=== PATIENT | male | born 1980 | race Caucasian/White ===

== ENCOUNTER 2017-07-06 12:59 | Emergency (ER) | payer SELFPAY ==
[~2017-07-06] VITALS: Ht 167.6 cm; Wt 70.0 kg
[2017-07-06 13:01] VITALS: BP 188/109; PULSE 99; RESP 18; TEMP 98.2; O2SAT 97
--- NOTE | 2017-07-06 13:59 | PD ---
HPI Chief Complaint: Abdominal Pain Time Seen by Provider: 13:43 Travel History International Travel<30 days: No Contact w/Intl Traveler<30days: No Traveled to known affect area: No History of Present Illness HPI 36-year-old male complains of right flank pain. Patient states that he has intermittent right flank pain for the past 3 months. Patient states that the pain aching pain intermittent pain occasionally worse with movement or deep inspiration. Patient denies any nausea vomiting diarrhea. Patient denies any dysuria or frequency. Patient denies any fever chills. Patient denies any injury to the area. Patient states that he drinks alcohol daily. Patient states that he has a shake if he stops drinking. Patient denies any history of DT. Patient denies any flank pain or abdominal pain today. PFSH Past Medical History Depression: Yes Diminished Hearing: No Hypertension: Yes Medical other: Yes (ETOH ABUSE) Past Surgical History Other Surgery: Yes (LEFT KNEE, LEFT SHOULDER RECONSTRUCTION, RIGHT WRIST CYST REMOVED) Social History Alcohol Use: Yes (VOKDA 1 PT PER DAY) Tobacco Use: Yes (1 PPD) Substance Use: Yes (MARIJUANA) Allergies-Medications (Allergen,Severity, Reaction): Coded Allergies: No Known Allergies (Unverified , 07/06/17) Reported Meds & Prescriptions Reported Meds & Active Scripts Active No Active Prescriptions or Reported Medications Review of Systems General / Constitutional: No: Fever Eyes: No: Visual changes HENT: No: Headaches Cardiovascular: No: Chest Pain or Discomfort Respiratory: No: Shortness of Breath Gastrointestinal: Positive: Abdominal Pain Genitourinary: No: Dysuria Musculoskeletal: No: Pain Skin: No Rash Neurologic: No: Weakness Psychiatric: No: Depression Endocrine: No: Polydipsia Hematologic/Lymphatic: No: Easy Bruising Physical Exam Narrative GENERAL: Well-nourished, well-developed patient. SKIN: Focused skin assessment warm/dry. HEAD: Normocephalic. EYES: No scleral icterus. No injection or drainage. NECK: Supple, trachea midline. No JVD or lymphadenopathy. CARDIOVASCULAR: Regular rate and rhythm without murmurs, gallops, or rubs. RESPIRATORY: Breath sounds equal bilaterally. No accessory muscle use. GASTROINTESTINAL: Abdomen soft, non-tender, nondistended. MUSCULOSKELETAL: No cyanosis, or edema. BACK: Nontender without obvious deformity. No CVA tenderness. Neurologic exam normal. Data Data Last Documented VS Vital Signs Date Time Temp Pulse Resp B/P (MAP) Pulse Ox O2 Delivery O2 Flow Rate FiO2 07/06/17 15:16 89 22 161/98 (119) 99 Room Air 07/06/17 13:01 98.2 Orders Orders Complete Blood Count With Diff (07/06/17 13:47) Comprehensive Metabolic Panel (07/06/17 13:47) Lipase (07/06/17 13:47) Prothrombin Time / Inr (Pt) (07/06/17 13:47) Act Partial Throm Time (Ptt) (07/06/17 13:47) Urinalysis - C+S If Indicated (07/06/17 13:47) Iv Access Insert/Monitor (07/06/17 13:47) Ecg Monitoring (07/06/17 13:47) Oximetry (07/06/17 13:47) Sodium Chloride 0.9% Flush (Ns Flush) (07/06/17 14:00) Potassium Chloride (Kcl) (07/06/17 15:30) Labs Laboratory Tests Test 07/06/17 14:05 07/06/17 15:10 White Blood Count 8.0 TH/MM3 Red Blood Count 4.32 MIL/MM3 Hemoglobin 16.0 GM/DL Hematocrit 45.5 % Mean Corpuscular Volume 105.4 FL Mean Corpuscular Hemoglobin 37.0 PG Mean Corpuscular Hemoglobin Concent 35.1 % Red Cell Distribution Width 13.7 % Platelet Count 84 TH/MM3 Mean Platelet Volume 9.7 FL Neutrophils (%) (Auto) 74.9 % Lymphocytes (%) (Auto) 12.7 % Monocytes (%) (Auto) 10.9 % Eosinophils (%) (Auto) 0.9 % Basophils (%) (Auto) 0.6 % Neutrophils # (Auto) 6.0 TH/MM3 Lymphocytes # (Auto) 1.0 TH/MM3 Monocytes # (Auto) 0.9 TH/MM3 Eosinophils # (Auto) 0.1 TH/MM3 Basophils # (Auto) 0.1 TH/MM3 CBC Comment AUTO DIFF Differential Total Cells Counted 100 Neutrophils % (Manual) 73 % Band Neutrophils % 8 % Lymphocytes % 10 % Monocytes % 9 % Neutrophils # (Manual) 6.5 TH/MM3 Differential Comment FINAL DIFF MANUAL Platelet Estimate LOW Platelet Morphology Comment NORMAL Red Cell Morphology Comment NORMAL Prothrombin Time 10.7 SEC Prothromb Time International Ratio 1.0 RATIO Activated Partial Thromboplast Time 25.8 SEC Blood Urea Nitrogen 9 MG/DL Creatinine 0.80 MG/DL Random Glucose 93 MG/DL Total Protein 8.3 GM/DL Albumin 4.0 GM/DL Calcium Level 9.2 MG/DL Alkaline Phosphatase 82 U/L Aspartate Amino Transf (AST/SGOT) 317 U/L Alanine Aminotransferase (ALT/SGPT) 215 U/L Total Bilirubin 2.0 MG/DL Sodium Level 132 MEQ/L Potassium Level 3.0 MEQ/L Chloride Level 95 MEQ/L Carbon Dioxide Level 26.3 MEQ/L Anion Gap 11 MEQ/L Estimat Glomerular Filtration Rate 108 ML/MIN Lipase 311 U/L Urine Color YELLOW Urine Turbidity CLEAR Urine pH 6.0 Urine Specific Call 1.019 Urine Protein 30 mg/dL Urine Glucose (UA) NEG mg/dL Urine Ketones 40 mg/dL Urine Occult Blood NEG Urine Nitrite NEG Urine Bilirubin SMALL Urine Urobilinogen 8.0 MG/DL Urine Leukocyte Esterase NEG Urine WBC 2 /hpf Urine Hyaline Casts 7 /lpf Urine Granular Casts 6 /lpf Microscopic Urinalysis Comment CULT NOT INDICATED MDM Medical Decision Making Medical Screen Exam Complete: Yes Emergency Medical Condition: Yes Interpretation(s) 1522 PM. Sodium 132. Potassium 3.0. Total bili 2.0. AST 317. ALT 215. Differential Diagnosis Differential diagnosis including musculoskeletal, alcoholic hepatitis, cholecystitis, colitis, UTI, pyelonephritis, nephrolithiasis. Narrative Course 36-year-old male with intermittent right flank pain. History of EtOH abuse. Diagnosis Primary Impression: Transaminitis Additional Impression: Elevated blood pressure reading Patient Instructions: General Instructions Additional Instructions: Advised [facility] for detox. Lisinopril as directed. Follow-up with personal physician for blood pressure check. Med/Other Pt SpecificInfo: Prescription(s) given Scripts Lisinopril (Lisinopril) 5 Mg Tab 5 MG PO DAILY for Blood Pressure Management, #30 TAB 0 Refills Prov: Dave العراقي MD 07/06/17 Disposition: 01 DISCHARGE HOME Condition: Stable Dave العراقي MD Jul 06, 2017 13:59
[2017-07-06] MEDS ORDERED: SODIUM CHLORIDE 0.9% FLUSH 10 ML FLUSH IV FLUSH PRN (14:00)
[2017-07-06 14:09] VITALS: O2SAT 97
[2017-07-06 14:17] LABS: BASOPHIL # 0.1 TH/MM3 (0-0.2); BASOPHIL % 0.6 % (0.0-2.0); EOSINOPHIL # 0.1 TH/MM3 (0-0.4); EOSINOPHIL % 0.9 % (0.0-4.0); HEMATOCRIT 45.5 % (39.0-51.0); LYMPH % 12.7 % (9.0-44.0); MEAN CELL VOLUME 105.4 FL (80.0-100.0); MEAN CORPUSCULAR HGB CONC 35.1 % (32.0-36.0); MONO % 10.9 % (0.0-8.0); NEUT % 74.9 % (16.0-70.0); PLATELET COUNT 84 TH/MM3 (150-450); RED BLOOD COUNT 4.32 MIL/MM3 (4.50-5.90); RED CELL DISTRIBUTION WIDTH 13.7 % (11.6-17.2)
[2017-07-06 14:26] LABS: APTT (PATIENT) 25.8 SEC (24.3-30.1); PROTHROMBIN TIME - PATIENT 10.7 SEC (9.8-11.6)
[2017-07-06 14:28] LABS: ALT (GPT) 215 U/L (12-78); ANION GAP 11 MEQ/L (5-15); AST (GOT) 317 U/L (15-37); BICARBONATE 26.3 MEQ/L (21.0-32.0); BLOOD UREA NITROGEN 9 MG/DL (7-18); CHLORIDE 95 MEQ/L (98-107); GLOMERULAR FILTRATION RATE 108 ML/MIN (>89); SODIUM (NA) 132 MEQ/L (136-145)
[2017-07-06 14:30] LABS: ALKALINE PHOSPHATASE 82 U/L (45-117)
[2017-07-06 15:16] VITALS: BP 161/98; PULSE 89; RESP 22; O2SAT 99
[2017-07-06] MEDS ORDERED: POTASSIUM CHLORIDE 20 MEQ CONTROLLED RELEASE TAB PO ONE (15:30)
[2017-07-06 15:46] LABS: HEMO FLAGS AUTO DIFF
[2017-07-06 16:00] LABS: BANDS 8 % (0-6); NEUTROPHIL # MANUAL DIFF 6.5 TH/MM3 (1.8-7.7); PLATELET ESTIMATE SMEAR LOW (NORMAL); PLATELET MORPHOLOGY NORMAL (NORMAL); POLYS (SEG NEUTROPHILS) 73 % (16-70); WBC DIFF SAMPLE 100
[2017-07-06 16:01] LABS: BLOOD, URINE NEG (NEG); COMMENT (UR) CULT NOT INDICATED; CULTURE IF INDICATED CULT NOT INDICATED; GLUCOSE,URINE NEG (NEG); GRANULAR CAST, URINE 6 /lpf; HYALINE CAST, URINE 7 /lpf (RARE); KETONE, URINE 40 mg/dL (NEG); NITRITE,URINE NEG (NEG); URINE COLOR YELLOW (YELLW/STRAW)
[2017-07-06 16:02] LABS: SCAN/DIFF FINAL DIFF MANUAL
[2017-07-06] MEDS ORDERED: LISI-519 PO (17:20)
== END 2017-07-06 17:33 | disposition home or self-care (01) ==
LOC: NEPD 12:59
DX: R74.0 Nonspecific elevation of levels of transaminase and lactic acid dehydrogenase [LDH] (principal); I10 Essential (primary) hypertension; F17.200 Nicotine dependence, unspecified, uncomplicated
CPT/HCPCS: 80053; 81001; 83690; 85007; 85027; 85610; 85730; 99283

== ENCOUNTER 2017-10-04 12:19 | Emergency (ER) | payer SELFPAY ==
[~2017-10-04] VITALS: Ht 167.6 cm; Wt 68.0 kg
[~2017-10-04 12:19] MED LIST: LISI-519 PO
[2017-10-04 12:20] VITALS: BP 168/86; PULSE 90; RESP 18; TEMP 98.1; O2SAT 99
[2017-10-04] MEDS ORDERED: KETOROLAC TROMETHAMINE 60 MG/2 ML (IM) VIAL IM ONE (12:45)
[2017-10-04] MEDS ORDERED: ORPHENADRINE INJ 60 MG/2 ML AMP IM ONE (12:45)
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
[2017-10-04] MEDS ORDERED: TYLETAB34 PO (16:21)
[2017-10-04] MEDS ORDERED: CYCL5TAB PO (16:21)
[2017-10-04] MEDS ORDERED: IBUP-232 PO (16:21)
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
== END 2017-10-04 16:33 | disposition home or self-care (01) ==
LOC: NEPD 12:19
DX: S16.1XXA Strain of muscle, fascia and tendon at neck level, initial encounter (principal); X58.XXXA Exposure to other specified factors, initial encounter
CPT/HCPCS: 72050; 96372; 99284; J1885; J2360